=== PATIENT | male | born 1985 | race Caucasian/White ===

== ENCOUNTER 2016-10-29 21:02 | Emergency (ER) | payer OTHER ==
[2016-10-29 21:06] VITALS: RESP 16
[2016-10-29] MEDS ORDERED: Sodium Chloride 0.9% 1,000 ML IV STA (21:23)
--- NOTE | 2016-10-29 21:35 | ED PDOC ---
HPI: General Adult Time Seen by Provider: 10/29/16 21:11 Chief Complaint (Nursing): Alcohol Ingestion Chief Complaint (Provider): Intoxication History Per: EMS History/Exam Limitations: clinical condition Onset/Duration Of Symptoms: Days (Today) Current Symptoms Are (Timing): Still Present Additional Complaint(s): Pt. was found sitting on a bench and vomiting so brought to the ED. Pt. not communicating and sleepy. Per EMS pt. had etoh. Pt. with vomit over him. Past Medical History Reviewed: Nursing Documentation, Vital Signs Vital Signs: Last Vital Signs Temp 97.0 F L 10/29/16 21:04 Pulse 72 10/29/16 21:04 Resp 16 10/29/16 21:04 BP 109/64 10/29/16 21:04 Pulse Ox 99 10/29/16 21:40 - Medical History Other PMH: unknown - Surgical History Other surgeries: unknown - Family History Family History: States: Unknown Family Hx - Social History Alcohol: Other - Allergies Allergies/Adverse Reactions: Allergies Allergy/AdvReac Type Severity Reaction Status Date / Time No Known Allergies Allergy Verified 10/29/16 21:04 Review of Systems Review Of Systems: ROS cannot be obtained secondary to pt's inabilty to answer questions. Physical Exam - Reviewed Nursing Documentation Reviewed: Yes Vital Signs Reviewed: Yes - Physical Exam Appears: Positive for: No Acute Distress Head Exam: Positive for: ATRAUMATIC, NORMAL INSPECTION, NORMOCEPHALIC Skin: Positive for: Normal Color, Warm, DRY Eye Exam: Positive for: PERRL Neck: Positive for: Supple, Trachea Midline Cardiovascular/Chest: Positive for: Regular Rate, Rhythm. Negative for: Edema Respiratory: Positive for: CNT, Normal Breath Sounds Gastrointestinal/Abdominal: Positive for: Normal Exam, Soft. Negative for: Tenderness Back: Positive for: Normal Inspection. Negative for: L CVA Tenderness, R CVA Tenderness Extremity: Negative for: Tenderness, Pedal Edema Neurologic/Psych: Positive for: Other (no responding to verbal communication; withdraws to pain.) - Laboratory Results Result Diagrams: 10/29/16 21:54 10/29/16 21:54 Interpretation Of Abn Labs: 252 etoh - ECG O2 Sat by Pulse Oximetry: 99 Pulse Ox Interpretation: Normal - Progress ED Course And Treament: 2349: Stable. Resting. Response to stimuli. Nurse spoke with . She can' t come to the ED today. 2357: Stable. Spoke with radiologist. Wants pt. to get repeat CT to clarify prominent cortical veins. Will repeat CT in 3 hrs. States not likely bleed. Dr. Campbell to fu on repeat CT and re-eval. ED OBSERVATION Date of observation admission: 10/29/16 Time of observation admission: 21:39 - Observation admission statement Patient is being placed in observation because:: Continue monitoring and get eval. - Goals of Observation Goals of observation are:: Getting fluids. Disposition - Clinical Impression Clinical Impression: Alcohol abuse - Patient ED Disposition Is Patient to be Admitted: Transfer of Care - Disposition Disposition: Transfer of Care Disposition Time: 00:05 Condition: FAIR Patient Signed Over To: Darren Campbell
[2016-10-29 22:04] LABS: BASO # 0.1 K/uL (0.0-0.2); BASO % 0.7 % (0.0-2.0); EOS # 0.7 K/uL (0.0-0.7); EOS % 8.3 % (0.0-4.0); HEMOGLOBIN 14.6 g/dL (12.0-18.0); LYMPH # 4.1 K/uL (1.0-4.3); LYMPH % 51.5 % (20.0-40.0); MEAN CELL VOLUME 88.3 fl (80.0-94.0); MEAN CORPUSCULAR HEMOGLOBIN 29.2 pg (27.0-31.0); MEAN CORPUSCULAR HGB CONC 33.1 g/dL (33.0-37.0); MONO # 0.6 K/uL (0.0-0.8); MONO % 7.6 % (0.0-10.0); NEUT # 2.6 K/uL (1.8-7.0); NEUT % 31.9 % (50.0-75.0); NRBC % 0.1 % (0.0-0.0); RED CELL DISTRIBUTION WIDTH 12.9 % (11.5-14.5)
[2016-10-29 22:16] LABS: ALB/GLOB RATIO 1.3 (1.0-2.1); ALBUMIN 4.3 g/dL (3.5-5.0); ALT/SGPT 35 U/L (21-72); AST/SGOT 56 U/L (17-59); BLOOD UREA NITROGEN 9 mg/dl (9-20); CALCIUM 8.5 mg/dL (8.4-10.2); GFR AFRICAN-AMERICAN > 60; GFR NON-AFRICAN AMERICAN > 60
--- NOTE | 2016-10-30 02:00 | ED PDOC ---
- Laboratory Results Result Diagrams: 10/29/16 21:54 10/29/16 21:54 - ECG O2 Sat by Pulse Oximetry: 99 (RA) Pulse Ox Interpretation: Normal Medical Decision Making Medical Decision Makin Patient signed out to me from Dr. Gibson pending sobriety and repeat head CT. 0210 This patient is choosing to leave against medical advice. I have personally explained to the patient that choosing to do so may result in permanent bodily harm or . I have discussed at great length that without further evaluation and monitoring there may be unforeseen circumstances and/or deterioration causing permanent bodily harm or as a result of their choice. The patient verbalized these risks back to the physician in laymans terms. The patient is alert, oriented, and shows the mental capacity to make clear decisions regarding the patients health care at this time. The patient continues to wish to leave against medical advice. In light of the patients decision to leave AMA, follow-up has been arranged and the pt is aware of the importance of following up as instructed. The patient has been advised that they should return to the ED immediately if they change their mind at any time, or if their condition begins to change or worsen in any way. Patient is sober, A&O x 3, steady gait at time of discharge. Scribe Attestation: Documented by Malgorzata Mcgovern acting as a scribe for Darren Campbell MD. Scribe Attestation: All medical record entries made by the Scribe were at my direction and personally dictated by me. I have reviewed the chart and agree that the record accurately reflects my personal performance of the history, physical exam, medical decision making, and the department course for this patient. I have also personally directed, reviewed, and agree with the discharge instructions and disposition. Disposition - Clinical Impression Clinical Impression: Alcohol abuse - POA Present On Arrival: None - Disposition Referrals: Alcoholics Anonymous [Outside] Disposition: AGAINST MEDICAL ADVICE Disposition Time: 02:10 Condition: FAIR Instructions: Alcohol Intoxication (ED), Against Medical Advice (ED)
[2016-10-30 02:21] VITALS: BP 110/68; PULSE 79; TEMP 98.6
[2016-10-30 02:22] VITALS: O2SAT 99
--- NOTE | 2016-10-30 08:31 | CT ---
PROCEDURE: CT HEAD WITHOUT CONTRAST. HISTORY: Headache COMPARISON: None available. TECHNIQUE: Axial computed tomography images were obtained through the head/brain without intravenous contrast. Radiation dose: Total exam DLP = 1116.19 mGy-cm. This CT exam was performed using one or more of the following dose reduction techniques: Automated exposure control, adjustment of the mA and/or kV according to patient size, and/or use of iterative reconstruction technique. FINDINGS: HEMORRHAGE: No intracranial hemorrhage. BRAIN: Orellana-white matter differentiation is preserved. There is no mass, mass effect or abnormal extra-axial fluid collection. VENTRICLES: There is mild global parenchymal volume loss with proportionate enlargement of the ventricles and cortical sulci, advanced for the patient's age. CALVARIUM: The skull base and calvarium are normal. PARANASAL SINUSES: There is moderate polypoid mucosal thickening in the frontal and ethmoid sinuses and severe polypoid mucosal thickening in the maxillary sinus, worse in the left maxillary sinus with aerosolized secretions and central calcification. There is mild circumferential mucosal thickening in the sphenoid sinus. MASTOID AIR CELLS: Predominantly clear. OTHER FINDINGS: There is cerumen in the right external auditory canal. IMPRESSION: No acute intracranial abnormality. Mild global parenchymal volume loss, advanced for the patient's age. Chronic pansinusitis worse in the left maxillary sinus. Superimposed calculi secretions may represent acute sinusitis in the appropriate clinical setting. A preliminary report was provided by [facility].
== END 2016-10-30 02:22 | disposition home or self-care (01) ==
LOC: H.ER 21:02
DX: F10.10 Alcohol abuse, uncomplicated (principal); J32.4 Chronic pansinusitis; R11.10 Vomiting, unspecified